=== PATIENT | female | born 1985 | race Caucasian/White ===

== ENCOUNTER → 2019-05-08 12:26 | Outpatient (CLI) | payer OTHER, SELFPAY ==
[2019-05-08 13:05] LABS: Influenza A - CEPHEID Flu A NEGATIVE (NEGATIVE); Influenza B - CEPHEID Flu B POSITIVE (NEGATIVE)
== END ==
PROVIDERS: Visit Provider Physician Assistant
DX: R05 Cough (principal)
CPT/HCPCS: 87502

== ENCOUNTER → 2021-09-14 07:29 | Outpatient (CLI) | payer OTHER, SELFPAY ==
[2021-09-14 08:46] LABS: Add Manual Diff / Slide Review NO; Basophils Absolute Auto 100 /uL (0-100); Basophils Percent Auto 1.2 % (0-2); Eosinophils Absolute Auto 200 /uL (0-450); Eosinophils Percent Auto 3.2 % (2-4); Hematocrit 41.1 % (36-46); Hemoglobin 13.9 g/dL (12.0-16.0); Lymphocytes Absolute Auto 2700 /uL (1100-4500); Lymphocytes Percent Auto 41.1 % (25-40); Mean Corpuscular HGB Conc 33.7 % (30-36); Mean Corpuscular Hemoglobin 27.7 PG (26-34); Monocytes Absolute Auto 500 /uL (0-900); Monocytes Percent Auto 7.3 % (3-14); Neutrophils Absolute Auto 3100 /uL (1500-7000); Neutrophils Percent Auto 47.2 % (50-75); Platelet Count 319 X10^3/uL (150-400); Red Blood Cell Count 5.01 X10^6/uL (4.0-5.2); Red Cell Distribution Width 13.5 % (11.6-14.8); White Blood Cell Count 6.6 X10^3/uL (4.5-11.0)
[2021-09-14 08:55] LABS: Hemoglobin A1C% w Est Avg Glu 5.3 % (4.0-6.0)
[2021-09-14 09:19] LABS: Alanine Aminotransferase 28 IU/L (<35); Albumin 4.3 g/dL (3.5-5.0); Albumin Globulin Ratio 1.7 (1.0-2.8); Alkaline Phosphatase 85 U/L (38-126); Aspartate Aminotransferase 29 IU/L (14-36); BUN Creatinine Ratio 12.8 (6-22); Bilirubin Total 0.4 mg/dL (0.2-1.3); Blood Urea Nitrogen 10 mg/dL (7-17); Calcium 9.1 mg/dL (8.4-10.2); Carbon Dioxide 22 mmol/L (22-32); Chloride 107 mmol/L (98-107); Cholesterol 184 mg/dL (140-199); Estimated Glomerular Filt Rate > 60 mL/min (>60); Globulin 2.5 g/dL (1.7-4.1); Glucose 104 mg/dL (70-100); HDL Cholesterol 51 mg/dL (40-60); HEMOLYSIS < 15 (0-50); LDL Cholesterol Calculated 111 mg/dL (<100); Potassium 4.4 mmol/L (3.4-5.1); Sodium 138 mmol/L (137-145); Total Protein 6.8 g/dL (6.3-8.2); Triglycerides 111 mg/dL (35-150)
[2021-09-14 09:52] LABS: TSH w/ Reflex to FT4 2.26 uIU/mL (0.47-4.68)
== END ==
PROVIDERS: PCP Family Medicine; Referring Provider Family Medicine; Visit Provider Family Medicine
DX: E66.9 Obesity, unspecified (principal); R41.840 Attention and concentration deficit; R73.9 Hyperglycemia, unspecified; E78.5 Hyperlipidemia, unspecified
CPT/HCPCS: 36415; 80053; 80061; 83036; 84443; 85025

== ENCOUNTER → 2021-10-26 12:53 | Outpatient (CLI) | payer OTHER, SELFPAY ==
--- NOTE | 2021-10-26 13:04 | DIET.CONS ---
Dietary Consultation Note Admission Date: Assessment: 36y F attending RD visit for help with obesity. 2018 did Optivia got down to 180#, gained during covid. Last summer switched from beer to Truly got down to 200# ordered apple watch, will be here Saturday. Step Bet is helpful. Usual Day: wakes 7-7:15am never feeling rested (has sleep study done) drinks 2c coffee (on sale creamer- white chocolate, caramel, sweet) skips breakfast realizes long term though day its lunch even though not necessarily hunger but actually is hangry drinks water all day order out: [employer], Teriyaki, [employer] pizza, salads sometimes gets home 5pm does treadmill- no incline 30-60 min, 3-3.5 shower and chores sometimes BF comes over and cooks dinner, eat 7-8pm steak and potatoes, pastas, cheesy things, not spicy, sweet, salty, veggies often go bad in fridge only drinks for social situations okay with packing lunches not usually snacking in evening but if eats too early she gets hungry has air fryer Protein: no nuts or seeds but likes pb, likes chicken, pork chops, steaks, not hamburgers, likes fish seafood, likes refried beans and hummus Carbs: all, rice a raul once weekly, potatoes, no corn and peas vegetables: likes mushrooms, wynn peppers, garlic, spinach, ada, asparagus, basil, joe fruits: likes green grapes, mauricio some texture aversion and worry of things getting stuck in teeth Ht: 5'4 Wt: 212# BMI: 36.3 Weight Goal: 180# Baseline Measurements: left side arm 15.5 leg 28.25 hips 43 waist 40 Nutrition Diagnosis: morbid obesity r/t undesirable food choices and meal timing aeb pt with BMI 36.3, hx yoyo dieting, elevated FBG 104, pt diet high in calories and fat, low in F/V and dietary fiber. Interventions: 1. Set nutrient goals, pt will use [employer] to track intake for next two weeks. 2. Pt will pack snack and lunch 4d/w and only eat out once weekly at work. 3. Educated pt on hunger scale. Pt will use scale to identify her hunger and fullness for portion control and meal timing. 4. Discussed importance of dietary fiber and protein for weight loss and weight maintenance. Practiced label reading. EER: 1400-1700kcals, 25g fiber, 75g pro Monitoring/Evaluations: f/u in 2w Electronically Signed by: Mariela Barreto 10/26/21 13:04 Clinical Dietitian [address] [address]
[2021-10-26 13:40] VITALS: BMI 36.3
== END ==
PROVIDERS: PCP Family Medicine; Referring Provider Family Medicine; Visit Provider Family Medicine
DX: E66.9 Obesity, unspecified (principal); Z68.36 Body mass index [BMI] 36.0-36.9, adult; Z71.3 Dietary counseling and surveillance
CPT/HCPCS: 97802

== ENCOUNTER → 2021-11-09 16:26 | Outpatient (CLI) | payer OTHER, SELFPAY ==
--- NOTE | 2021-11-09 16:39 | DIET.OUTPTC ---
Dietary Outpatient Consultation Note Consultation Date: 11/09/[address] 36[address] RD visit for help with weight management. Pt made some positive changes since first visit. Is intermittently logging in [employer], found high fiber crackers she enjoys, bringing lunch to work daily, only eating out one day per week. Pt also had some setbacks. Because her daughter was not home, she did not grocery shop as much, had more etoh intake, and did not use her treadmill. Pts 10y daughter more of an adventurous eater, is back from visiting other family. Tried Wheat Thins and [place] cheddar cheeses B: 2c coffee with creamer sets timer to eat snack at 10am- cheese and crackers L: eating out only once per week Sn: cheese and crackers home at 5pm Current Weight: 215# Discussed portion control for comfort foods and reinforced changes pt is making to work on healthier intake and weight loss. Provided resource for healthier swaps to comfort dilcia. F/u in 3w for weigh in and to continue teaching. Electronically Signed by: Mariela Barreto 11/09/21 16:39 Clinical Dietitian [address] [address]
== END ==
PROVIDERS: PCP Family Medicine; Referring Provider Family Medicine; Visit Provider Family Medicine
DX: Z71.3 Dietary counseling and surveillance (principal)
CPT/HCPCS: 97803

== ENCOUNTER → 2021-11-21 06:54 | Outpatient (CLI) | payer OTHER, SELFPAY ==
[2021-11-21 08:00] LABS: Hemoglobin A1C% w Est Avg Glu 5.4 % (4.0-6.0)
== END ==
PROVIDERS: PCP Family Medicine; Referring Provider Pediatrics; Visit Provider Pediatrics
DX: R73.01 Impaired fasting glucose (principal)
CPT/HCPCS: 36415; 83036

== ENCOUNTER → 2022-01-10 16:26 | Outpatient (CLI) | payer OTHER, SELFPAY ==
--- NOTE | 2022-01-10 16:30 | DIET.OUTPTC ---
Dietary Outpatient Consultation Note Consultation Date: 01/10/[address] 36[address] f/u for help with weight management. (-6#) 208# arm: 14.75 (-3/4) le (1.5) hips: 41.5 (-1.5) waist: 40.5 (same) Usual Day: Mornin-2 c coffee c creamer at 8am Lunch. 2 [place] cheese cubes with wheat thins Sn: fiber one brownie protein at dinner Exercise: walking 30 minutes or more daily Pt seeing good progress with weight reduction through high fiber/high protein diet, reduction in etoh, and daily exercise. Pt losing 1# per week, could increase to 2# per week if doubles up on exercise. F/u in 6w to assess progress and continue monitoring. Electronically Signed by: Mariela Barreto 01/10/22 16:30 Clinical Dietitian [address] [address]
== END ==
PROVIDERS: PCP Family Medicine; Referring Provider Internal Medicine; Visit Provider Family Medicine
DX: E66.9 Obesity, unspecified (principal); Z71.3 Dietary counseling and surveillance
CPT/HCPCS: 97803

== ENCOUNTER → 2022-02-21 16:24 | Outpatient (CLI) | payer OTHER, SELFPAY ==
--- NOTE | 2022-02-21 16:40 | DIET.CONS ---
Dietary Consultation Note Assessment: 36y F attending RD f/u for help with weight management. Pt doing excellent with increased exercise and following high fiber intuitive eating plan. Pt has lost 16# in 4mo. Ht: 5'4 Wt: 198# (-10# in 6w, -16# total) BMI: 34 (-2.3 BMI points since initiation of RD visits) arm: 14.25 (-1/2) le.25 (-1.75) hips: 40 (-1.5) waist: 38 (-2.5) Interventions: 1. Discussed upcoming holiday and collaborated to make plans for reasonable choices. Pt will not buy candy but will enjoy a few Reeces when she takes her daughter [id number]. Monitoring/Evaluations: f/u in 6w to continue monitoring and support through holiday season. Electronically Signed by: Mariela Barreto 02/21/22 16:40 Clinical Dietitian [address] [address]
== END ==
PROVIDERS: PCP Family Medicine; Referring Provider Family Medicine; Visit Provider Family Medicine
DX: Z71.3 Dietary counseling and surveillance (principal); Z68.34 Body mass index [BMI] 34.0-34.9, adult
CPT/HCPCS: 97803

== ENCOUNTER → 2022-06-06 16:31 | Outpatient (CLI) | payer OTHER, SELFPAY ==
--- NOTE | 2022-06-13 15:07 | DIET.OUTPTC ---
Dietary Outpatient Consultation Note Consultation Date: 06/06/20[address] 37[address] attending RD f/u for weight management. 194# (-4# since late March, -20# in 6mo) Pt reports stressful May because of work commitments. Pt stopped walking on her treadmill and ate out a little more than usual due to boss offering to purchase food. Despite this, pt is down 4# since late March. Pt plans on starting her workouts back up today and will not be eating out so much as their busy work month is over. Pt aims to lose an additional 20#, is residential to goal in 6mo. Reiterated importance of consistency with weight loss. f/u in 8w to continue monitoring. Electronically Signed by: Mariela Barreto 06/13/22 15:07 Clinical Dietitian [address] [address]
== END ==
PROVIDERS: PCP Family Medicine; Referring Provider Family Medicine; Visit Provider Family Medicine
DX: Z71.3 Dietary counseling and surveillance (principal)
CPT/HCPCS: 97803

== ENCOUNTER → 2022-08-22 16:26 | Outpatient (CLI) | payer OTHER, SELFPAY ==
--- NOTE | 2022-08-22 16:30 | DIET.OUTPTC ---
Dietary Outpatient Consultation Note Consultation Date: 08/22/2022 37y F attending RD f/u for weight management. Current Weight: 186# (-8# in 8w, -28# in 8mo) Pt had some stressors over the past few months, tax season and family . Pt noticed she was having a drink every night again out of habit and hasn't been exercising as much. Interventions: 1. Pt to reduce etoh consumption to only social settings. 2. Pt to start back up with treadmill walking nightly and walking around track when daughter is at softball practice. f/u in 8w to continue supporting pt achieving her stepwise weight goal of 180#. Electronically Signed by: Mariela Barreto 08/22/22 16:30 Clinical Dietitian [address] [address]
== END ==
PROVIDERS: PCP Family Medicine; Referring Provider Family Medicine; Visit Provider Family Medicine
DX: E66.9 Obesity, unspecified (principal); Z71.3 Dietary counseling and surveillance
CPT/HCPCS: 97803

== ENCOUNTER → 2022-11-30 08:15 | Outpatient (CLI) | payer OTHER, SELFPAY ==
[2022-11-30 08:39] LABS: Add Manual Diff / Slide Review NO; Basophils Absolute Auto 100 /uL (0-100); Basophils Percent Auto 1.1 % (0-2); Eosinophils Absolute Auto 300 /uL (0-450); Eosinophils Percent Auto 3.7 % (2-4); Hematocrit 40.1 % (36-46); Hemoglobin 13.7 g/dL (12.0-16.0); Lymphocytes Absolute Auto 2700 /uL (1100-4500); Lymphocytes Percent Auto 33.6 % (25-40); Mean Corpuscular HGB Conc 34.2 % (30-36); Mean Corpuscular Volume 81.8 fL (80-100); Monocytes Absolute Auto 600 /uL (0-900); Monocytes Percent Auto 6.9 % (3-14); Neutrophils Absolute Auto 4400 /uL (1500-7000); Neutrophils Percent Auto 54.7 % (50-75); Platelet Count 362 X10^3/uL (150-400); Red Cell Distribution Width 13.2 % (11.6-14.8)
[2022-11-30 09:05] LABS: Alanine Aminotransferase 21 IU/L (<35); Albumin 4.2 g/dL (3.5-5.0); Albumin Globulin Ratio 1.6 (1.0-2.8); Alkaline Phosphatase 83 U/L (38-126); Aspartate Aminotransferase 25 IU/L (14-36); BUN Creatinine Ratio 13.4 (6-22); Bilirubin Total 0.3 mg/dL (0.2-1.3); Blood Urea Nitrogen 9 mg/dL (7-17); Calcium 9.4 mg/dL (8.4-10.2); Carbon Dioxide 21 mmol/L (22-32); Chloride 104 mmol/L (98-107); Estimated Glomerular Filt Rate > 60 mL/min (>60); Globulin 2.7 g/dL (1.7-4.1); Glucose 141 mg/dL (70-100); HEMOLYSIS < 15 (0-50); Potassium 4.4 mmol/L (3.4-5.1); Sodium 135 mmol/L (137-145); Total Protein 6.9 g/dL (6.3-8.2)
[2022-11-30 09:24] LABS: TSH w/ Reflex to FT4 1.94 uIU/mL (0.47-4.68)
[2022-11-30 09:47] LABS: Pregnancy Test Urine Negative (Negative)
[2022-12-01 07:03] LABS: Labcorp Hemoglobin (Hb) A1c 5.4 % (4.8-5.6)
[2022-12-06 13:40] LABS: Percent Free Testosterone 1.09 % (0.50-2.80); Testosterone Free 0.18 ng/dL (0.10-0.85); Testosterone Total 16.9 ng/dL (10.0-55.0)
== END ==
PROVIDERS: PCP Family Medicine; Referring Provider Family Medicine; Visit Provider Family Medicine
DX: N91.5 Oligomenorrhea, unspecified (principal); F90.9 Attention-deficit hyperactivity disorder, unspecified type
CPT/HCPCS: 36415; 80053; 81025; 82627; 83036; 84402; 84403; 84443; 85025

== ENCOUNTER → 2022-12-29 10:42 | Outpatient (CLI) | payer OTHER, SELFPAY ==
[2022-12-29 11:35] LABS: Prolactin 13.5 ng/mL (3.0-18.6)
== END ==
PROVIDERS: PCP Family Medicine; Referring Provider Family Medicine; Visit Provider Family Medicine
DX: N91.5 Oligomenorrhea, unspecified (principal); R79.89 Other specified abnormal findings of blood chemistry
CPT/HCPCS: 36415; 82627; 84146

== ENCOUNTER → 2023-09-03 08:20 | Outpatient (CLI) | payer OTHER, SELFPAY ==
[2023-09-03 09:07] LABS: Add Manual Diff / Slide Review NO; Basophils Absolute Auto 100 /uL (0-100); Basophils Percent Auto 0.8 % (0-2); Eosinophils Absolute Auto 200 /uL (0-450); Eosinophils Percent Auto 2.7 % (2-4); Hemoglobin 13.9 g/dL (12.0-16.0); Lymphocytes Absolute Auto 3200 /uL (1100-4500); Lymphocytes Percent Auto 46.4 % (25-40); Mean Corpuscular HGB Conc 33.9 % (30-36); Mean Corpuscular Volume 82.5 fL (80-100); Monocytes Absolute Auto 500 /uL (0-900); Neutrophils Absolute Auto 3000 /uL (1500-7000); Neutrophils Percent Auto 43.1 % (50-75); Platelet Count 369 X10^3/uL (150-400); Red Blood Cell Count 4.97 X10^6/uL (4.0-5.2); Red Cell Distribution Width 13.3 % (11.6-14.8)
[2023-09-03 09:21] LABS: Hemoglobin A1C% w Est Avg Glu 5.5 % (4.0-6.0)
[2023-09-03 09:38] LABS: Alanine Aminotransferase 22 IU/L (<35); Albumin 4.3 g/dL (3.5-5.0); Albumin Globulin Ratio 1.5 (1.0-2.8); Alkaline Phosphatase 59 U/L (38-126); Aspartate Aminotransferase 23 IU/L (14-36); BUN Creatinine Ratio 17.2 (6-22); Bilirubin Total 0.4 mg/dL (0.2-1.3); Blood Urea Nitrogen 11 mg/dL (7-17); Carbon Dioxide 22 mmol/L (22-32); Chloride 109 mmol/L (98-107); Estimated Glomerular Filt Rate > 60 mL/min (>60); Globulin 2.9 g/dL (1.7-4.1); Glucose 99 mg/dL (70-100); HEMOLYSIS < 15 (0-50); Potassium 4.4 mmol/L (3.4-5.1); Sodium 139 mmol/L (137-145); Total Protein 7.2 g/dL (6.3-8.2)
[2023-09-03 09:59] LABS: TSH w/ Reflex to FT4 1.81 uIU/mL (0.47-4.68)
== END ==
PROVIDERS: PCP Family Medicine; Referring Provider Family Medicine; Visit Provider Family Medicine
DX: R73.01 Impaired fasting glucose (principal); F90.9 Attention-deficit hyperactivity disorder, unspecified type; N91.5 Oligomenorrhea, unspecified; N92.0 Excessive and frequent menstruation with regular cycle
CPT/HCPCS: 36415; 80053; 83036; 84443; 85025

== ENCOUNTER → 2023-10-02 16:02 | Outpatient (CLI) | payer OTHER, SELFPAY ==
--- NOTE | 2023-10-03 10:51 | DIET.OUTPTC ---
Dietary Outpatient Consultation Note Consultation Date: 10/02/2023 Assessment: 38 y F referred to dietitian for obesity. Marta reports previously meeting w/ RDMariela, last visit August 2022, in which they worked together on daytime intake, hunger/fullness scale at dinner time, and increasing fiber intake. She was successful in implementing goals, lost weight, but has since noted weight gain and no longer eats during day r/t concerns this is leading to weight gain/caused weight gain. She is on ADHD medication that suppresses her appetite during day. Does not eat vegetables, is willing to consider a vegetable intake 1x/wk d/t partner recently dx w/ pre-DM, but is still contemplative. Is wanting to do weight checks and WC measurements at f/u. Diet recall: No intake until dinner D-meat + potato or casserole or chili cheese dog or fast food If hungry at night will do wheat thins + cheese Water: 24 oz x2/day Ht: 5 ft 4 in (162.5 cm) Wt: 206 lb 6 oz (93.61) BMI: 35.4 Weight History: 09/03/23: 93.61 kg 06/04/23: 91.626 kg 11/30/22: 87.543 kg Nutrition Diagnosis: Inadequate fiber intake r/t food choices and decreased appetite aeb dietary recall Interventions: 1. Increased fiber, discussed balanced meals, saturated fat, brief overview of label reading for saturated fat Goals: 1. Schedule snack x2 during day of wheat thin and cheese 2. Continue checking hunger/fullness cues at dinner time 3. Consider veg at dinner 1x/wk Monitoring/Evaluations: weight, diet recall, physical activity Electronically Signed by: Genia Keller 10/03/23 10:51 Clinical Dietitian [address] [address]
== END ==
PROVIDERS: PCP Family Medicine; Referring Provider Family Medicine
DX: E66.9 Obesity, unspecified (principal); Z68.35 Body mass index [BMI] 35.0-35.9, adult; Z71.3 Dietary counseling and surveillance
CPT/HCPCS: 97802

== ENCOUNTER → 2023-10-30 16:47 | Outpatient (CLI) | payer OTHER, SELFPAY ==
--- NOTE | 2023-11-01 16:56 | DIET.OUTPTC ---
Dietary Outpatient Consultation Note Consultation Date: 11/01/2023 Assessment: 38 y F referred to dietitian for obesity. Nutrition f/u. Marta found that the timer did not work as adequate remainder for daytime eating, set reminder to bring food into office as first step. Has been very busy and stressed with work. Continues to use hunger/fullness scale. Has added a veg serving to meals 3x/wk. Diet recall: No intake until dinner D-pasta+cheese+asparagus or meat+potatoes If hungry at night will do wheat thins + cheese Water: 24 oz x2/day no alcohol intake Ht: 5 ft 4 in (162.5 cm) Wt: 206 lb 6 oz (93.61) BMI: 35.4 Weight History: 10/30/23: 91.4 kg 09/03/23: 93.61 kg 06/04/23: 91.626 kg 11/30/22: 87.543 kg Measurements: (pt requested) le.25 arm: 13.5 WC: 40 Hips: 44.5 Nutrition Diagnosis: Inadequate fiber/protein intake r/t food choices and decreased appetite aeb dietary recall Physical inactivity r/t busy schedule aeb <150 mins/wk of physical activity Interventions: 1. Increase daytime intake for adequate fiber and kcals -Bring food to office -Continue veg at dinner + adequate protein source 2. Increase activity Goals: 1. Schedule snack x2 during day of wheat thin and cheese 2. Continue checking hunger/fullness cues at dinner time 3. Pt thinking of using treadmill at home while finishing work Monitoring/Evaluations: weight, diet recall, physical activity Electronically Signed by: Genia Keller 11/01/23 16:56 Clinical Dietitian [address] [address]
== END ==
PROVIDERS: PCP Family Medicine; Referring Provider Family Medicine
DX: E66.9 Obesity, unspecified (principal); Z68.35 Body mass index [BMI] 35.0-35.9, adult; Z71.3 Dietary counseling and surveillance
CPT/HCPCS: 97803

== ENCOUNTER → 2023-11-26 12:53 | Outpatient (CLI) | payer OTHER, SELFPAY ==
--- NOTE | 2023-11-26 13:33 | DIET.OUTPTC ---
Dietary Outpatient Consultation Note Consultation Date: 11/26/2023 Assessment: 38 y F referred to dietitian for obesity. Nutrition f/u. Marta reports having an afternoon snack and having hunger cues during the daytime. Does either wheat thins + cheese or office provided snack. Reports after consideration, using treadmill at home is not a realistic plan for her right now. Would like to increase water intake and continue with making conscious healthy snack choices during daytime and post dinner snacks. Continues veg at dinner 1-3x/wk. Water: 24 oz x2/day or less no alcohol intake Ht: 5 ft 4 in (162.5 cm) Wt: 205 lb (93.18) BMI: 35.2 Weight History: 11/26/23: 93.18 kg 10/30/23: 91.4 kg 09/03/23: 93.61 kg 06/04/23: 91.626 kg 11/30/22: 87.543 kg Measurements: (pt requested) le.5 arm: 13.5 WC: 40 Hips: 43.5 Nutrition Diagnosis: (initial) Inadequate fiber/protein intake r/t food choices and decreased appetite aeb dietary recall Interventions: 1. Increase daytime intake -2 daytime snacks fiber+protein based -Continue veg at dinner + adequate protein source 2. Reviewed balanced meals with overview of Plate Method -Portion sizes 3. Increase fluid intake Goals: 1. Schedule snack x2 during day of wheat thin and cheese 2. Continue checking hunger/fullness cues at dinner time 3. Use 64 oz water bottle over smaller sized bottles Monitoring/Evaluations: weight, diet recall, water intake Electronically Signed by: Genia Keller 11/26/23 13:33 Clinical Dietitian [address] [address]
== END ==
LOC: DIET 12:54
PROVIDERS: PCP Family Medicine; Referring Provider Family Medicine
DX: E66.9 Obesity, unspecified (principal); Z68.35 Body mass index [BMI] 35.0-35.9, adult; Z71.3 Dietary counseling and surveillance
CPT/HCPCS: 97803

== ENCOUNTER → 2023-12-31 16:35 | Outpatient (CLI) | payer OTHER, SELFPAY ==
--- NOTE | 2023-12-31 16:36 | DIET.OUTPTC ---
Dietary Outpatient Consultation Note Consultation Date: 12/31/2023 Nutrition f/u. Pt reports unable to complete previous set goals due to trips and stress at work. Pt discussed goal of taking 30 minutes after each work day before relaxing to complete household tasks and get in daily movement so weekends can be less overwhelming and can increase movement on weekends. Does do cheese/wheat thins during day or as snack when home. Goal to increase water intake remains same as previous visit. F/u in 6 wks. Electronically Signed by: Genia Keller 12/31/23 16:36 Clinical Dietitian [address] [address]
== END ==
PROVIDERS: PCP Family Medicine; Referring Provider Family Medicine
DX: E66.9 Obesity, unspecified (principal); Z71.3 Dietary counseling and surveillance
CPT/HCPCS: 97803

== ENCOUNTER → 2024-02-13 16:02 | Outpatient (CLI) | payer OTHER, SELFPAY ==
--- NOTE | 2024-02-13 17:08 | DIET.OUTPTC ---
Dietary Outpatient Consultation Note Consultation Date: 02/13/2024 Nutrition F/u: Pt unable to complete goal of taking time after work to complete tasks around the house for daily movement. Is working overtime, having difficulty sleeping, having back pain. Comes to today's appt very exhausted. Wants to talk to doctor before moving forward with activity and nutrition goals. Has appt set up. Was able to increase water to 120 oz a day. Encouraged continuation. F/u after doctor's visit. Electronically Signed by: Genia Keller 02/13/24 17:08 Clinical Dietitian [address] [address]
== END ==
PROVIDERS: PCP Family Medicine; Referring Provider Family Medicine
DX: E66.9 Obesity, unspecified (principal); Z68.35 Body mass index [BMI] 35.0-35.9, adult; Z71.3 Dietary counseling and surveillance
CPT/HCPCS: 97803

== ENCOUNTER → 2024-07-24 07:09 | Outpatient (CLI) | payer OTHER, SELFPAY ==
[2024-07-24 08:09] LABS: Prolactin 18.3 ng/mL (3.0-18.6)
[2024-07-24 08:22] LABS: Follicle Stimulating Hormone 4.16 mIU/mL; Luteinizing Hormone 3.78 mIU/mL
[2024-07-24 08:23] LABS: Cortisol Random 17.8 ug/dL
[2024-07-24 08:38] LABS: Estradiol, Total 53.2 pg/mL
== END ==
LOC: LAB 07:11
PROVIDERS: PCP Family Medicine; Referring Provider Internal Medicine Endocrinology, Diabetes & Metabolism; Visit Provider Internal Medicine Endocrinology, Diabetes & Metabolism
DX: N92.6 Irregular menstruation, unspecified (principal)
CPT/HCPCS: 36415; 82024; 82157; 82533; 82627; 82670; 83001; 83002; 83498; 84146; 84402; 84403

== ENCOUNTER → 2024-08-11 06:58 | Outpatient (CLI) | payer OTHER, SELFPAY | PROVIDERS: PCP Family Medicine; Referring Provider Internal Medicine Endocrinology, Diabetes & Metabolism; Visit Provider Internal Medicine Endocrinology, Diabetes & Metabolism | DX: N92.6 Irregular menstruation, unspecified (principal) | CPT/HCPCS: 82157 ==

== ENCOUNTER → 2024-10-02 08:10 | Outpatient (CLI) | payer OTHER, SELFPAY ==
--- NOTE | 2024-10-02 08:12 | DI.US.S_ITS ---
PROCEDURE: US PELVIC COMPLETE INDICATIONS: PCOS TECHNIQUE: Real-time scanning was performed of the pelvic organs, with image documentation. Additional endovaginal scanning was necessary due to incomplete visualization of the adnexal and endometrial structures by transabdominal scanning. COMPARISON: None. FINDINGS: Uterus: Uterus is anteverted and normal in size at 7.4 x 4.7 x 3.5 cm. The myometrium is heterogeneous. The endometrium measures 3.4 mm combined thickness. Ovaries: The right ovary measures 4.0 x 3.9 x 2.4 cm, with a calculated ovarian volume of 20 cc. Right ovarian simple cyst measuring 3.4 x 2.6 x 2.2 cm. The right ovary is otherwise normal in appearance with less than 12 follicles. The left ovary is not seen. Other: No pathologic free abdominal or pelvic fluid. IMPRESSION: Right ovarian simple cyst measuring 3.4 cm. The right ovary is otherwise normal in appearance with less than 12 follicles. The left ovary is not seen. We strive to produce accurate, complete, and clear reports of imaging services. To assist us in improving patient care, this report was composed using standard report templates and voice recognition software. Therefore, it may contain abnormal punctuation, insertions and/or omissions. Occasional wrong-word or sound-alike substitutions may occur. Though we review the report and make efforts to correct it, we do recommend that the report be read carefully in proper context to recognize any text inaccuracies. Dictated by: Stanford Gamble M.D. on 10/03/2024 at 13:15 Approved by: Stanford Gamble M.D. on 10/03/2024 at 13:17
[2024-10-04 10:36] LABS: Adrenocorticotropic Hormone 38.1 pg/mL (7.2-63.3)
== END ==
PROVIDERS: PCP Family Medicine; Referring Provider Family Medicine; Visit Provider Family Medicine
DX: E28.2 Polycystic ovarian syndrome (principal); N91.5 Oligomenorrhea, unspecified; R79.89 Other specified abnormal findings of blood chemistry; F90.9 Attention-deficit hyperactivity disorder, unspecified type
CPT/HCPCS: 36415; 76830; 76856; 82024

== ENCOUNTER → 2025-03-12 10:00 | Outpatient (CLI) | payer OTHER, SELFPAY ==
[2025-03-12 12:10] LABS: Add Manual Diff / Slide Review NO; Hematocrit 41.6 % (36-46); Hemoglobin 14.4 g/dL (12.0-16.0); Lymphocytes Absolute Auto 3200 /uL (1100-4500); Mean Corpuscular HGB Conc 34.7 % (30-36); Mean Corpuscular Hemoglobin 27.9 PG (26-34); Mean Corpuscular Volume 80.3 fL (80-100); Platelet Count 364 X10^3/uL (150-400)
[2025-03-12 12:18] LABS: Hemoglobin A1C% w Est Avg Glu 5.4 % (4.0-6.0)
[2025-03-12 12:22] LABS: Alanine Aminotransferase 18 IU/L (<35); Albumin 4.3 g/dL (3.5-5.0); Albumin Globulin Ratio 1.5 (1.0-2.8); Alkaline Phosphatase 70 U/L (38-126); Blood Urea Nitrogen 13 mg/dL (7-17); Calcium 9.5 mg/dL (8.4-10.2); Carbon Dioxide 22 mmol/L (22-32); Chloride 104 mmol/L (98-107); Cholesterol 195 mg/dL (140-199); Estimated Glomerular Filt Rate > 60 mL/min (>60); Globulin 2.9 g/dL (1.7-4.1); Glucose 85 mg/dL (70-99); HDL Cholesterol 56 mg/dL (40-60); HEMOLYSIS < 15 (0-50); Potassium 4.6 mmol/L (3.4-5.1); Sodium 135 mmol/L (137-145); Total Protein 7.2 g/dL (6.3-8.2); Triglycerides 101 mg/dL (35-150)
[2025-03-12 12:59] LABS: TSH w/ Reflex to FT4 1.02 uIU/mL (0.47-4.68)
== END ==
LOC: LAB 10:01
PROVIDERS: PCP Family Medicine; Referring Provider Family Medicine; Visit Provider Family Medicine
DX: R73.01 Impaired fasting glucose (principal); F90.0 Attention-deficit hyperactivity disorder, predominantly inattentive type; G47.19 Other hypersomnia; R79.89 Other specified abnormal findings of blood chemistry; N91.5 Oligomenorrhea, unspecified
CPT/HCPCS: 36415; 80053; 80061; 83036; 84443; 85025